=== PATIENT | male | born 1935 | race African-American/Black ===

== ENCOUNTER 2016-11-25 13:11 | Inpatient (IN) | payer MEDICARE, OTHER ==
--- NOTE | ~2016-11-25 | HP ---
History And Physical [facility] [address] [place]. [address] NAME: FELIPE GALLARDO : 34 STATUS : ADM IN PAT#: [id number] AGE: 81 ADM/REG DATE : 11/25/16 MR#: [id number] REPORT SERV DATE: 11/25/16 DICTATED BY: DELIO ALBERTS DATE: 11/25/16 REPORT STATUS : Draft TRANSCRIBED BY: MODL DATE: 11/25/16 DATE OF ADMISSION: 11/25/2016 REASON FOR ADMISSION: Syncope secondary to orthostatic hypotension. CHIEF COMPLAINT: "I am not sure why I am here." HISTORY OF PRESENT ILLNESS: An 81-year-old male with a history of hypertension and dementia, probable Alzheimer's type; has had frequent falls, he has had three within the past one to two weeks. He lives at home with his granddaughter, all three of his falls have been unwitnessed, but his granddaughter says that he falls at the exact same spot. He tries to get up from bed to the bathroom, stands up, and then passes out and falls. The last time she took him to [facility] and he had a CT scan of his head done and a workup that was negative and sent home. At this time, he was noted to have significant orthostasis to the point that his systolic blood pressure dropped from 153 to 98 upon standing. The patient states that he does get dizzy and lightheaded sometimes when he goes to stand up. The patient's granddaughter was concerned that he seemed to be unresponsive after he fell. He had a little bit of bleeding on the back of his head this time and felt that he was rigid, possibly having seizures, so that is what prompted her to take him to the ER today. The patient's granddaughter is at the bedside and states that he is almost at his baseline, but feels he is a little bit rigid. The patient even though he is demented, he is able to ambulate without assistance. The granddaughter made it clear that the patient is to be DNR/DNI, and that if his bleed continues to worsen, then she does not want any surgical interventions and she would be okay with comfort measures; and therefore, Hospice was asked to admit the patient. I clarified this with the patient's granddaughter and confirmed it. The patient denies any shortness of breath, chest pain, nausea, vomiting, or diarrhea. PAST MEDICAL HISTORY: Hypertension, probable COPD. PAST SURGICAL HISTORY: None. SOCIAL HISTORY: He lives at home with his granddaughter and great grandson. He had a son and daughter who are both . 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 He smokes one pack per day for multiple years and drinks one drink per day according to his granddaughter. FAMILY HISTORY: Mother has dementia. MEDICATIONS: None. ALLERGIES: NO KNOWN ALLERGIES. PHYSICAL EXAMINATION: VITAL SIGNS: Blood pressure is 153/55 lying down and 98/32 with a heart rate of 80 standing up, afebrile, respirations are 20, and sat 98% on room air. GENERAL: He is alert and oriented to name, place, and granddaughter and his date, does not know the current date and time. History And Physical [address] [address] NAME: FELIPE GALLRADO : 34 STATUS : ADM IN [facility]#: [id number] AGE: 81 ADM/REG DATE : 11/25/16 MR#: [id number] REPORT SERV DATE: 11/25/16 DICTATED BY: DELIO ALBERTS DATE: 11/25/16 REPORT STATUS : Draft TRANSCRIBED BY: PRESTON DATE: 11/25/16 HEENT: Normocephalic with an old healing of occipital wound from a fall plus a current occipital wound with three cornelia placed by Dr. Vicente. No active bleeding. A mild occipital hematoma on the left side. NECK: Supple. No JVD. CARDIAC: Regular. No murmurs, rubs, or gallops. PULMONARY: Clear to auscultation bilaterally. ABDOMEN: Soft, nontender, and nondistended. Positive bowel sounds. EXTREMITIES: Show no clubbing, cyanosis, or edema. NEUROLOGIC: No focal deficits. PSYCHIATRIC: The patient is cooperative and mood is appropriate. LABORATORY DATA: Labs show white blood cell count of 7.8, hemoglobin of 12, hematocrit 36, and platelet is 158. CMP: Creatinine is 1.41, glucose 248, and albumin 3.4. Chest x-ray shows no acute process. Pelvis x-ray shows no fracture. Spine x-ray shows no acute fracture. CT scan of brain without contrast shows recent occipital trauma, evidence of a small amount of subarachnoid hemorrhage lying around the tentorium cerebelli, and a small amount of subdural blood along the right posterior falx in the midline. There is no intraventricular hemorrhage or intraparenchymal hemorrhage. IMPRESSION: 1. Syncope secondary to orthostasis. 2. Mild subarachnoid hemorrhage. 3. Mild subdural hematoma. 4. Hypertension. 5. Dementia, probably Alzheimer's type. PLAN: Plan is to do IV fluids. Check a cortisol level. Check a UA with reflex culture. Obtain a CT scan of his head 24 hours after the first one to evaluate the progression of his hemorrhage. Please note that if bleeding continues to worsen the granddaughter who is the power of insurance defense attorney does not want any surgical intervention since she is okay with comfort measures. The patient is a DNR/DNI. There is no primary care doctor. Anticipate sending him home to live with his granddaughter in two days or so. SHANICE/PRESTON Delio Alberts MD / [id number] CC: Delio Alberts MD
--- NOTE | ~2016-11-25 | DS ---
Discharge Summary [facility] [address] [place]. [address] NAME: FELIPE KONG : 33 STATUS : DIS IN PAT#: [id number] AGE: 81 ADM/REG DATE : 11/25/16 MR#: [id number] REPORT SERV DATE: 12/02/16 DICTATED BY: DELIO ALBERTS DATE: 12/01/16 REPORT STATUS : Draft TRANSCRIBED BY: MODL DATE: 12/01/16 ADMISSION DATE: 11/25/2016 DISCHARGE DATE: 12/01/2016 REASON FOR ADMISSION: Syncope secondary to orthostatic hypotension. HPI: Please refer to my history and physical dated 11/25/2016 for complete details on the patient's admission. The patient was admitted to Hospitalist Service for syncope secondary to orthostasis and a mild subarachnoid and subdural hematoma. HOSPITAL COURSE: The patient had an uncomplicated hospital course. The patient was living at home with the granddaughter who is the power of deputy county attorney. Sustained a fall, presented to the ER with orthostasis and dehydration. CT scan of the head was obtained, which showed a mild subarachnoid and subdural hematoma. The patient's granddaughter made it clear that the patient is to be DNR/DNI and if head bleeding would continue to get worse, he would not want any surgical intervention. Therefore patient was admitted to the Hospitalist Service for monitoring. The patient was admitted to [address] [place] [address] as a DNR/DNI. We monitored his blood levels, repeat CT scan of his head showed resolution of his subarachnoid and subdural hematoma. The initial plan was to get the patient back home as the patient's granddaughter was working on assisted living facility, however, she changed her mind and wanted the patient to be admitted to [facility] for rehab. Therefore Physical Therapy evaluated the patient, recommended rehab. [facility] had evaluated the patient on Thursday, but given his dementia they were concerned about his stability and behavior, and therefore, wanted the patient watched over the weekend. We watched the patient over the weekend. He started to develop sundowners and he was started on Seroquel at night which he tolerated very well. Past two nights there have been no overnight issues. The blood pressure has been sporadic, but has been normotensive. He has reached maximal hospitalization and will be discharged today to [facility] for rehab. DISCHARGE DIAGNOSES: 1. Syncope secondary to orthostasis, now resolved. 2. Mild subarachnoid hemorrhage, now resolved. 3. Mild subdural hematoma, now resolved. 4. Hypertension, stable. 5. Dementia with sundowners, stable. 6. DNR/DNI. 7. Citrobacter urinary tract infection. PROCEDURES: Include CT scan of his head without contrast, x3. DISCHARGE MEDICATIONS: Include: 1. Cefadroxil 1000 mg twice a day for 3 days. 2. Seroquel 12.5 mg p.r.n. sleep. 3. Amlodipine 5 mg once a day. This is Delio Alberts MD doing discharge dictation, spending over 30 minutes in planning Discharge Summary [address] [address] NAME: FELIPE KONG : 34 STATUS : DIS IN PAT#: [id number] AGE: 81 ADM/REG DATE : 11/25/16 MR#: [id number] REPORT SERV DATE: 12/02/16 DICTATED BY: DELIO ALBERTS DATE: 12/01/16 REPORT STATUS : Draft TRANSCRIBED BY: PRESTON DATE: 12/01/16 and coordination of care Mr. Kong. SHANICE/PRESTON Delio Alberts MD / [id number] CC: Felipe Hanson MD
[~2016-11-25 13:11] MED LIST: CYPROHEPTAD4 MG OR; GLUCOPHAGE1000 MG PO; LAMIS15 TOP; LEVITRA20 MG PO; MONOPRIL40 MG PO; WELL75 PO; [UNRECOGNIZED DRUG - OTHER] EX
[2016-11-25 13:42] LABS: BASOPHILS 0.1 %; BASOPHILS ABSOLUTE 0.01 10/3/uL (0.0-0.16); EOSINOPHILS 0.4 %; EOSINOPHILS ABSOLUTE 0.03 10/3/uL (0.0-0.53); HEMATOCRIT 35.9 % (40.0-51.0); IMMATURE GRANULOCYTES 0.3 %; IMMATURE GRANULOCYTES ABSOLUTE 0.02 10/3/uL (0.0-0.11); LYMPHOCYTES 14.8 %; LYMPHOCYTES ABSOLUTE 1.16 10/3/uL (0.67-4.30); MANUAL DIFF NO %; MEAN CORPUS HGB CONC 33.4 g/dL (32.0-36.0); MEAN CORPUSCULAR HEMOGLOB 29.6 pg (26.0-34.0); MEAN CORPUSCULAR VOLUME 88.6 fL (80-100); MEAN PLATELET VOLUME 10.5 fL (9.2-13.0); MONOCYTES 6.1 %; MONOCYTES ABSOLUTE 0.48 10/3/uL (0.21-1.20); NEUTROPHILS 78.3 %; NEUTROPHILS ABSOLUTE 6.14 10/3/uL (2.02-8.40); PLATELET COUNT 158 10/3/uL (150-400); RBC DISTRIBUTION WIDTH 13.7 % (12.0-16.0); RED CELL COUNT 4.05 10/6/uL (4.7-6.1); WHITE BLOOD CELLS 7.8 10/3/uL (4.5-10.5)
[2016-11-25 13:49] LABS: INTERNATIONAL NORMAL RATI 1.3 UNITS (-); PARTIAL THROMBO TIME 26.8 SEC (22.5-37.2)
[2016-11-25 14:01] LABS: A/G RATIO 0.7 (0.7-1.9); ALBUMIN 3.4 G/DL (3.5-5.0); ALKALINE PHOSPHATASE 95 U/L (45-117); BUN (BLOOD UREA NITROGEN) 11 MG/DL (6-23); CALCIUM, SERUM 9.1 MG/DL (8.5-10.4); CHLORIDE, SERUM 105 MMOL/L (96-112); CO2 (CARBON DIOXIDE) 29 MMOL/L (24-34); CREATININE 1.41 MG/DL (0.70-1.30); GFR AFRICAN AMERICAN 53 ML/MIN (>=60); GFR NON AFRICAN AMERICAN 46 ML/MIN (>=60); GLOBULIN 5.1 G/DL (2.5-4.1); POTASSIUM, SERUM 3.7 MMOL/L (3.5-5.3); SGOT(AST) 16 U/L (5-40); SGPT(ALT) 21 U/L (5-65); SODIUM, SERUM 142 MMOL/L (135-148); TOTAL BILIRUBIN 0.9 MG/DL (0-1.2); TOTAL PROTEIN 8.5 G/DL (6.0-8.5); TROPONIN I <0.02 NG/ML (<0.05)
[2016-11-25 14:04] LABS: GLUCOSE, SERUM 248 MG/DL (60-99)
[2016-11-25] MEDS ORDERED: *DENIES (14:52)
[2016-11-25 16:22] LABS: ASCORBIC ACID (UR NOT ORDER) NEG (NEG); BILIRUBIN, URINE NEGATIVE (NEG); ER URINALYSIS TAT 0 Hrs 10 Mins; KETONE, URINE NEGATIVE (NEG); LEUKOCYTE ESTERASE(NOT OR SMALL (NEG); NITRITE (URINE) POS (NEG); WBC (NOT ORDERED) (RFLEX) 38 (0-5)
[2016-11-26 07:16] LABS: BUN (BLOOD UREA NITROGEN) 10 MG/DL (6-23); CALCIUM, SERUM 8.2 MG/DL (8.5-10.4); CHLORIDE, SERUM 109 MMOL/L (96-112); CREATININE 1.16 MG/DL (0.70-1.30); GFR AFRICAN AMERICAN 68 ML/MIN (>=60); GFR NON AFRICAN AMERICAN 58 ML/MIN (>=60); POTASSIUM, SERUM 4.1 MMOL/L (3.5-5.3); SODIUM, SERUM 142 MMOL/L (135-148)
[2016-11-26 07:17] LABS: CO2 (CARBON DIOXIDE) 20 MMOL/L (24-34); GLUCOSE, SERUM 173 MG/DL (60-99)
[2016-11-26 07:47] LABS: BASOPHILS 0.3 %; BASOPHILS ABSOLUTE 0.02 10/3/uL (0.0-0.16); EOSINOPHILS 1.3 %; EOSINOPHILS ABSOLUTE 0.09 10/3/uL (0.0-0.53); HEMATOCRIT 33.7 % (40.0-51.0); HEMOGLOBIN 11.2 g/dL (13.6-17.8); IMMATURE GRANULOCYTES 0.1 %; IMMATURE GRANULOCYTES ABSOLUTE 0.01 10/3/uL (0.0-0.11); LYMPHOCYTES 26.3 %; LYMPHOCYTES ABSOLUTE 1.89 10/3/uL (0.67-4.30); MANUAL DIFF NO %; MEAN CORPUS HGB CONC 33.2 g/dL (32.0-36.0); MEAN CORPUSCULAR HEMOGLOB 28.8 pg (26.0-34.0); MEAN CORPUSCULAR VOLUME 86.6 fL (80-100); MEAN PLATELET VOLUME 10.8 fL (9.2-13.0); MONOCYTES 7.8 %; MONOCYTES ABSOLUTE 0.56 10/3/uL (0.21-1.20); NEUTROPHILS 64.2 %; NEUTROPHILS ABSOLUTE 4.61 10/3/uL (2.02-8.40); PLATELET COUNT 127 10/3/uL (150-400); RBC DISTRIBUTION WIDTH 13.5 % (12.0-16.0); RED CELL COUNT 3.89 10/6/uL (4.7-6.1); WHITE BLOOD CELLS 7.2 10/3/uL (4.5-10.5)
[2016-11-27 06:49] LABS: BASOPHILS 0.2 %; BASOPHILS ABSOLUTE 0.01 10/3/uL (0.0-0.16); EOSINOPHILS 1.5 %; EOSINOPHILS ABSOLUTE 0.09 10/3/uL (0.0-0.53); HEMATOCRIT 33.1 % (40.0-51.0); IMMATURE GRANULOCYTES 0.2 %; IMMATURE GRANULOCYTES ABSOLUTE 0.01 10/3/uL (0.0-0.11); LYMPHOCYTES 26.9 %; LYMPHOCYTES ABSOLUTE 1.64 10/3/uL (0.67-4.30); MEAN CORPUS HGB CONC 33.2 g/dL (32.0-36.0); MEAN CORPUSCULAR HEMOGLOB 28.8 pg (26.0-34.0); MEAN CORPUSCULAR VOLUME 86.6 fL (80-100); MEAN PLATELET VOLUME 10.1 fL (9.2-13.0); MONOCYTES 7.1 %; MONOCYTES ABSOLUTE 0.43 10/3/uL (0.21-1.20); NEUTROPHILS 64.1 %; NEUTROPHILS ABSOLUTE 3.91 10/3/uL (2.02-8.40); PLATELET COUNT 156 10/3/uL (150-400); RBC DISTRIBUTION WIDTH 13.6 % (12.0-16.0); RED CELL COUNT 3.82 10/6/uL (4.7-6.1); WHITE BLOOD CELLS 6.1 10/3/uL (4.5-10.5)
[2016-11-27 06:50] LABS: MANUAL DIFF NO %
[2016-11-27 06:57] LABS: BUN (BLOOD UREA NITROGEN) 10 MG/DL (6-23); CALCIUM, SERUM 8.7 MG/DL (8.5-10.4); CHLORIDE, SERUM 107 MMOL/L (96-112); CO2 (CARBON DIOXIDE) 24 MMOL/L (24-34); GFR AFRICAN AMERICAN 59 ML/MIN (>=60); GFR NON AFRICAN AMERICAN 51 ML/MIN (>=60); GLUCOSE, SERUM 224 MG/DL (60-99); POTASSIUM, SERUM 3.4 MMOL/L (3.5-5.3); SODIUM, SERUM 140 MMOL/L (135-148)
[2016-11-28 06:18] LABS: BASOPHILS 0.2 %; BASOPHILS ABSOLUTE 0.01 10/3/uL (0.0-0.16); EOSINOPHILS 1.3 %; EOSINOPHILS ABSOLUTE 0.08 10/3/uL (0.0-0.53); HEMATOCRIT 34.7 % (40.0-51.0); HEMOGLOBIN 11.9 g/dL (13.6-17.8); IMMATURE GRANULOCYTES 0.2 %; IMMATURE GRANULOCYTES ABSOLUTE 0.01 10/3/uL (0.0-0.11); LYMPHOCYTES 28.4 %; MEAN CORPUS HGB CONC 34.3 g/dL (32.0-36.0); MEAN CORPUSCULAR VOLUME 87.4 fL (80-100); MEAN PLATELET VOLUME 10.6 fL (9.2-13.0); MONOCYTES 7.7 %; MONOCYTES ABSOLUTE 0.46 10/3/uL (0.21-1.20); NEUTROPHILS 62.2 %; NEUTROPHILS ABSOLUTE 3.72 10/3/uL (2.02-8.40); PLATELET COUNT 189 10/3/uL (150-400); RBC DISTRIBUTION WIDTH 13.3 % (12.0-16.0); RED CELL COUNT 3.97 10/6/uL (4.7-6.1)
[2016-11-28 06:19] LABS: MANUAL DIFF NO %
[2016-11-28 06:38] LABS: BUN (BLOOD UREA NITROGEN) 12 MG/DL (6-23); CALCIUM, SERUM 8.9 MG/DL (8.5-10.4); CHLORIDE, SERUM 102 MMOL/L (96-112); CO2 (CARBON DIOXIDE) 26 MMOL/L (24-34); CREATININE 1.35 MG/DL (0.70-1.30); GFR AFRICAN AMERICAN 56 ML/MIN (>=60); GFR NON AFRICAN AMERICAN 49 ML/MIN (>=60); GLUCOSE, SERUM 266 MG/DL (60-99); POTASSIUM, SERUM 3.2 MMOL/L (3.5-5.3); SODIUM, SERUM 138 MMOL/L (135-148)
[2016-11-29 08:47] LABS: BUN (BLOOD UREA NITROGEN) 13 MG/DL (6-23); CALCIUM, SERUM 8.6 MG/DL (8.5-10.4); CHLORIDE, SERUM 105 MMOL/L (96-112); CO2 (CARBON DIOXIDE) 25 MMOL/L (24-34); CREATININE 1.21 MG/DL (0.70-1.30); GFR AFRICAN AMERICAN 64 ML/MIN (>=60); GFR NON AFRICAN AMERICAN 55 ML/MIN (>=60); GLUCOSE, SERUM 201 MG/DL (60-99); POTASSIUM, SERUM 3.5 MMOL/L (3.5-5.3); SODIUM, SERUM 139 MMOL/L (135-148)
== END 2016-12-01 18:19 | DRG 86 ==
LOC: ER 13:11 → 7NO 17:07
PROVIDERS: Emergency Medicine; Internal Medicine
DX: S06.5X1A Traumatic subdural hemorrhage with loss of consciousness of 30 minutes or less, initial encounter (principal); N39.0 Urinary tract infection, site not specified; S06.6X1A Traumatic subarachnoid hemorrhage with loss of consciousness of 30 minutes or less, initial encounter; G30.9 Alzheimer's disease, unspecified; F02.80 Dementia in other diseases classified elsewhere, unspecified severity, without behavioral disturbance, psychotic disturbance, mood disturbance, and anxiety; I10 Essential (primary) hypertension; I95.1 Orthostatic hypotension; F17.210 Nicotine dependence, cigarettes, uncomplicated; W19.XXXA Unspecified fall, initial encounter; Z66 Do not resuscitate; B96.89 Other specified bacterial agents as the cause of diseases classified elsewhere; Z91.81 History of falling
CPT/HCPCS: 70450; 71010; 72050; 72170; 80048; 80053; 81001; 82533; 82962; 84484; 85025; 85610; 85730; 87077; 87086; 87186; 90471; 90714; 93005; 97110-GP; 97116-GP; 97162-GP; 99285; A9270-GY; G8978-CK-GP; G8979-CJ-GP